=== PATIENT | male | born 1995 | race Caucasian/White ===

== ENCOUNTER 2019-04-04 05:55 | Emergency (ER) | payer SELFPAY ==
[~2019-04-04] VITALS: Ht 185.4 cm; Wt 134.9 kg
[2019-04-04 06:00] VITALS: BP 124/76
--- NOTE | 2019-04-04 06:25 | NUR ---
PT HERE FOR EPIGASTRIC PAIN X SEVERAL WEEKS. PT HASNT BEEN TAKING ACID BLOCKING MEDICATION X 2 MONTHS. PT HAS HX OF STOMACH ULCERS. PA AT BEDSIDE
[2019-04-04] MEDS ORDERED: MAALOX/HYOSCYAMINE/LIDOCAINE 45 ML BTL ONE (06:28)
[2019-04-04] MEDS ORDERED: MAALOX/HYOSCYAMINE/LIDOCAINE 45 ML BTL PO ONE (06:30)
[2019-04-04 06:55] LABS: BASOPHILS # (AUTO) 0.06 x10^3/uL (0-0.1); BASOPHILS % (AUTO) 1 % (0-1); EOSINOPHILS # (AUTO) 0.15 x10^3/uL (0-0.4); EOSINOPHILS % (AUTO) 2 % (1-7); LYMPHOCYTES # (AUTO) 2.72 x10^3/uL (1-3.4); LYMPHOCYTES % (AUTO) 28 % (22-44); MD NO; MEAN CORPUSCULAR HEMOGLOBIN 28.9 pg (27.5-34.5); MEAN CORPUSCULAR HGB CONC 34.2 g/dL (33.2-36.2); MEAN CORPUSCULAR VOLUME 84.6 fL (81-97); MONOCYTES # (AUTO) 0.62 x10^3/uL (0.2-0.8); MONOCYTES % (AUTO) 7 % (2-9); NEUTROPHILS # (AUTO) 6.08 x10^3/uL (1.8-6.8); NEUTROPHILS % (AUTO) 63 % (42-75); PLATELET COUNT 291 x10^3/uL (130-400); RED BLOOD COUNT 5.59 x10^6/uL (4.38-5.82); RED CELL DISTRIBUTION WIDTH 13.3 % (9.4-14.8)
[2019-04-04 07:07] LABS: ALBUMIN 3.8 g/dL (3.4-5.0); ANION GAP 6 mmol/L (5-15); CALCIUM 8.8 mg/dL (8.5-10.1); CHLORIDE 106 mmol/L (98-107)
--- NOTE | 2019-04-04 07:08 | NUR ---
SBAR HAND-OFF REPORT RECEIVED FROM ABENA GARCIA. ASSUMING CARE OF PATIENT. PATIENT RESTING WITH NO COMPLAINTS AT THIS TIME. PATIENT REPORTS SOME RELIEF WITH GI COCKTAIL. WILL NOTIFY PROVIDER.
[2019-04-04 07:10] LABS: ALANINE AMINOTRANSFERASE 86 U/L (12-78); ALKALINE PHOSPHATASE 130 U/L (45-117); BILIRUBIN,TOTAL 0.9 mg/dL (0.2-1.0); CREATININE 1.02 mg/dL (0.7-1.3); TOTAL PROTEIN 7.7 g/dL (6.4-8.2)
--- NOTE | 2019-04-04 08:00 | NUR ---
Patient/Caregiver given discharge instructions and they have confirmed that they understand the instructions. Patient ambulatory with steady gait.
== END 2019-04-04 08:01 | disposition home or self-care (01) ==
LOC: ED 07:23
DX: K25.3 Acute gastric ulcer without hemorrhage or perforation (principal)
CPT/HCPCS: 36415; 80053; 83690; 85025; 99283

== ENCOUNTER 2020-07-13 11:51 | Emergency (ER) | payer OTHER ==
[~2020-07-13] VITALS: Ht 185.4 cm; Wt 132.9 kg
--- NOTE | 2020-07-13 12:28 | NUR ---
PT CAME IN AFTER TAKING "10 MUSCLE RELAXERS LAST NIGHT". PT ADMITS THAT HE WISHES TO BE . PT STATES HE HAS BEEN HAVE SUCIDAL THOUGHTS.
--- NOTE | 2020-07-13 12:40 | NUR ---
PT HAS BEEN MOVED TO A [facility] SECRUED ROOM WITH A PATIENT SAFETEY ADVOCATE OUTSIDE OF ROOM. PT BELONGINGS HAVE BEEN PLACED IN SI LOCKER AND ARE LOCKED. IN HIS PT BAG THERE IS A PAIR OF PANTS, SHOES, A PHONE, AND A T SHIRT.
[2020-07-13 12:45] LABS: BASOPHILS # (AUTO) 0.02 x10^3/uL (0-0.1); BASOPHILS % (AUTO) 0 % (0-1); EOSINOPHILS # (AUTO) 0.12 x10^3/uL (0-0.4); EOSINOPHILS % (AUTO) 1 % (1-7); LYMPHOCYTES # (AUTO) 2.21 x10^3/uL (1-3.4); LYMPHOCYTES % (AUTO) 21 % (22-44); MD NO; MEAN CORPUSCULAR HEMOGLOBIN 27.3 pg (27.5-34.5); MEAN CORPUSCULAR HGB CONC 33.1 g/dL (33.2-36.2); MEAN PLATELET VOLUME 7.8 fL (7.4-10.4); MONOCYTES # (AUTO) 0.19 x10^3/uL (0.2-0.8); MONOCYTES % (AUTO) 2 % (2-9); NEUTROPHILS # (AUTO) 7.75 x10^3/uL (1.8-6.8); NEUTROPHILS % (AUTO) 75 % (42-75); PLATELET COUNT 323 x10^3/uL (130-400); RED BLOOD COUNT 5.96 x10^6/uL (4.38-5.82)
[2020-07-13 12:52] LABS: ALANINE AMINOTRANSFERASE 61 U/L (12-78); ALBUMIN 3.6 g/dL (3.4-5.0); ANION GAP 6 mmol/L (5-15); CALCIUM 8.7 mg/dL (8.5-10.1); CHLORIDE 108 mmol/L (98-107); CREATININE 1.05 mg/dL (0.7-1.3); SALICYLATE LEVEL < 1.7 mg/dL (2.8-20.0)
--- NOTE | 2020-07-13 13:00 | NUR ---
REPORT RECEIVED FROM CRIS KRAFT. CHAR GALLARDO IN SPEAKING WITH PT AT THIS TIME.
[2020-07-13 13:02] LABS: ALKALINE PHOSPHATASE 150 U/L (45-117); BILIRUBIN,TOTAL 0.5 mg/dL (0.2-1.0); TOTAL PROTEIN 7.9 g/dL (6.4-8.2)
--- NOTE | 2020-07-13 14:00 | NUR ---
PT GAVE URINE SAMPLE WILLINGLY. PT RESTING CALMLY IN BED AT THIS TIME IN HOSPITAL GOWN. URINE WALKED TO LAB, IS RESULTED. CHAR GALLARDO ATTEMPTING TO GET AHOLD OF PT SISTER TO SPEAK WITH HER. PT CURRENTLY DENYING SI/SA. STATED HE TOOK THE REST OF HIS MUSCLE RELAXERS TO HELP HIM GO TO SLEEP, NOT TO END HIS LIFE.
[2020-07-13 14:01] LABS: AMPHETAMINE SCREEN, URINE Negative (Negative); BARBITURATE SCREEN, URINE Negative (Negative); BENZODIAZEPINE SCREEN, URINE Negative (Negative); CANNABINOID SCREEN, URINE Negative (Negative); COCAINE SCREEN, URINE Negative (Negative); METHADONE SCREEN, URINE Negative (Negative); OPIATE SCREEN, URINE Negative (Negative)
[2020-07-13 15:13] VITALS: BP 127/71
--- NOTE | 2020-07-13 15:35 | NUR ---
TASK RN NOTE: PT RESTING ON GURNEY, DC ORDERS RECEIVED. PT DENIES SI. PER PSYCH SOFTWARE DESIGNER CHAR, PT IS SAFE FOR DC. PT GIVEN BELONGINGS. PT GIVEN DC INSTRUCTIONS. PT A&O, RESPS EVEN AND UNLABORED, NADN. PT CALLING FAMILY TO PICK HIM UP, PT TO BE DISCHARGED ONCE FAMILY ARRIVES. REPORT GIVEN BACK TO PRIMARY RN CORNELIO.
--- NOTE | 2020-07-13 16:10 | NUR ---
pt continues to wait patiently for family to pick him up. pt has belongings, is dressed. sitter remains by door for obs. pt given dc paperwork. pt aware of plan to dc him home with family.
== END 2020-07-13 16:20 | disposition home or self-care (01) ==
LOC: ED 13:14
DX: G89.29 Other chronic pain (principal); M54.5 Low back pain; T42.4X1A Poisoning by benzodiazepines, accidental (unintentional), initial encounter; R00.0 Tachycardia, unspecified; F32.9 Major depressive disorder, single episode, unspecified; Z72.9 Problem related to lifestyle, unspecified; Y92.89 Other specified places as the place of occurrence of the external cause
CPT/HCPCS: 36415; 80053; 80307; 84443; 85025; 93005; 99284